=== PATIENT | female | born 1970 | race African-American/Black ===

== ENCOUNTER 2022-06-21 11:43 | Emergency (ER) | payer OTHER, SELFPAY ==
[2022-06-21] MEDS ORDERED: Morphine 10 MG/ML VIAL ONE (11:55)
== END 2022-06-21 13:01 | disposition home or self-care (01) ==
LOC: BURERS 11:43
DX: S46.912A Strain of unspecified muscle, fascia and tendon at shoulder and upper arm level, left arm, initial encounter (principal); S09.90XA Unspecified injury of head, initial encounter; E03.9 Hypothyroidism, unspecified; I10 Essential (primary) hypertension; V49.10XA Passenger injured in collision with unspecified motor vehicles in nontraffic accident, initial encounter; Y92.410 Unspecified street and highway as the place of occurrence of the external cause
CPT/HCPCS: 70450; 71045; 72125; 96372; J2270